=== PATIENT | female | born 1965 | race Hispanic/Latino ===

== ENCOUNTER 2024-06-15 08:55 | Day surgery (SDC) | payer BC ==
[2024-06-14 12:59] LABS: BASOPHILS # (AUTO) 0.04 K/uL (0.00-0.20); BASOPHILS % (AUTO) 0.6 % (0.0-5.0); EOSINOPHILS # (AUTO) 0.16 K/uL (0.00-0.70); EOSINOPHILS % (AUTO) 2.6 % (0.0-8.0); HEMATOCRIT 38.2 % (36-48); IMMATURE GRANULOCYTE ABSOLUTE 0.03 K/uL (0-1); LYMPHOCYTES # (AUTO) 1.9 K/uL (1.0-4.8); LYMPHOCYTES % (AUTO) 29.7 % (21.0-51.0); MEAN CORPUSCULAR HEMOGLOBIN 29.1 pg (27.0-33.0); MEAN CORPUSCULAR HGB CONC 32.2 g/dL (32.0-36.0); MEAN CORPUSCULAR VOLUME 90.5 fL (79-99); MONOCYTES # (AUTO) 0.6 K/uL (0.1-1.0); MONOCYTES % (AUTO) 10.1 % (3.0-13.0); NEUTROPHILS # (AUTO) 3.5 K/uL (1.8-7.7); NEUTROPHILS % (AUTO) 56.5 % (40.0-77.0); PLATELET COUNT (AUTO) 345 K/uL (130-400); RED BLOOD CELL COUNT(AUTO) 4.22 MIL/uL (4.00-5.50); RED CELL DISTRIBUTION WIDTH 13.5 % (11.0-15.5); WHITE BLOOD COUNT (AUTO) 6.2 K/uL (4.8-10.8)
[2024-06-14 13:04] VITALS: BP 128/69; PULSE 67; RESP 18; TEMP 97.9
[2024-06-14 13:46] LABS: CREATININE 0.8 mg/dL (0.5-1.0)
[~2024-06-15] VITALS: Ht 157.5 cm; Wt 71.1 kg
[2024-06-15] VITALS (17 sets, daily range): BP systolic 113–141; BP diastolic 61–76; PULSE 59–108; RESP 15–22; TEMP 97–98.1
[2024-06-15] MEDS: BUPIvacaine HCL/EPINEPHrine/PF 0.25% 10ML VIAL IJ ONE
[~2024-06-15 08:55] MED LIST: ASPI-1443 PO; BUSP15TA3 PO; FLUO40CA49 PO; LOSA25TA41 PO; MEMA5TAB16 PO; ROSU10TA72 PO; TRAZ150T79 PO
[2024-06-15] MEDS: LACTATED RINGERS 1000ML 1,000 ML IV ONE (10:25)
[2024-06-15] MEDS: ceFAZolin SODIUM 2 GM VIAL ONE (10:25)
[2024-06-15] MEDS ORDERED: TRAM-543 PO (12:55)
[2024-06-15] MEDS ORDERED: dexaMETHasone SOD PHOSPHATE 10MG/ML 1ML VIAL ONE (12:57)
[2024-06-15] MEDS ORDERED: proPOFol 10 MG/ML 20ML VIAL IV ONE (12:57)
[2024-06-15] MEDS ORDERED: MIDAZOLAM HCL 1 MG/ML 2ML VIAL ONE (12:58)
[2024-06-15] MEDS ORDERED: rocuRONium bROMide 10MG/1ML 5ML VL ONE ×3 (12:58→14:01)
[2024-06-15] MEDS ORDERED: ondanSETRON 4MG INJ ONE (12:58)
[2024-06-15] MEDS ORDERED: SUCCINYLCHOLINE CHLORIDE 20 MG/ML 10 ML VIAL ONE ×2 (12:58→13:38)
[2024-06-15] MEDS ORDERED: INDOCYANINE GREEN 25 MG VIAL IJ ONE (13:11)
[2024-06-15] MEDS ORDERED: FENTanyl CITRate PF 50 MCG/1 ML 2ML VIAL ONE (13:12)
[2024-06-15] MEDS ORDERED: ePHEDrine SULFate 50 MG/ML AMPULE ONE ×2 (13:28→13:38)
[2024-06-15] MEDS ORDERED: GLYCOPYRROLATE 0.2 MG/ML 5 ML VIAL ONE (15:40)
[2024-06-15] MEDS ORDERED: NEOSTIGMINE METHYLSULFATE 1MG/ML IV ONE (15:40)
--- NOTE | 2024-06-15 15:40 | OP ---
Operative Note: DATE OF PROCEDURE: 06/15/24 SURGEON: BHAVNA BROWN MD CLINICAL CYTOGENETICS DIRECTOR[place] [facility] [place] ANESTHESIA: general PREOPERATIVE DIAGNOSIS: symptomatic cholelithiasis POSTOPERATIVE DIAGNOSIS: symptomatic cholelithiasis SYNOPSIS: distended gallbladder PROCEDURE: robotic assisted cholecystectomy with ICG green ESTIMATED BLOOD LOSS: 150 ml INDICATIONS: This is a 58-year-old female with symptomatic cholelithiasis. She had imaging studies that showed cholelithiasis. A robotic assisted cholecystectomy was indicated. Informed consent was obtained prior to surgery which included a discussion about bleeding, infection, bile duct injury, bile leak and injury to surrounding viscera. DESCRIPTION OF PROCEDURE: Patient was taken to the operating room placed on the operating table in supine position. Next general anesthesia was induced and the patient was intubated. There abdomen was prepped and draped in a sterile fashion. A time-out was called and the patient's identity procedure and preoperative antibiotics were confirmed. I insufflated the abdominal cavity with a Veress needle. Once a pneumoperitoneum was established I entered the abdominal cavity using a 12 mm Optiview port in the left mid abdomen. I noticed some bleeding after entering with a 2nd port. I placed an additional 5 mm port in the left upper quadrant to visualize what was going on. It looked like there was a rent in the mesentery which I assume came from the Veress needle. I obtained quit control by clamping the rent. I then suture ligated the bleeding mesenteric vessel with a 3-0 V lock suture. The bleeding had stopped. I suctioned out the blood. I do not see any obvious bowel injuries. The patient remained stable during this. I placed three additional 8 mm ports across a straight line. The robot was docked to the patient. Pertinent findings: Distended gallbladder The gallbladder was retracted in a cephalad direction. I began to carefully dissect out the hepatic cystic triangle. I used ICG green to confirm ductal anatomy. The critical view was established. I identified the cystic artery. This was clipped and divided. The cystic duct was identified. This was clipped and divided. I then cauterized the gallbladder off the liver fossa bed. I chec ked the liver bed for bleeding. Hemostasis was obtained with electrocautery and packing. The gallbladder was placed in a specimen bag and removed from the abdominal cavity. Once again I checked the area of the mesenteric bleeding. I did not see any active bleeding or hematoma. I closed the fascia of the 12 mm port with a 1-0 Vicryl suture on a Remy-Slava closure device. The pneumoperitoneum was evacuated. Skin incisions were closed with 0.25% Marcaine. Dermabond was applied. Sponge needle instrument counts were accurate. Patient's anesthesia was reversed and they were extubated and taken to recovery room in stable condition. BHAVNA BROWN MD Jun 15, 2024 15:40
[2024-06-15 16:12] LABS: HEMATOCRIT 36.8 % (36-48)
[2024-06-15] MEDS: acetaMINOPHEN 100 ML ONE (16:46)
--- NOTE | 2024-06-15 17:30 | NUR ---
Full and complete discharge instructions given to Patient and Family both verbally and in writing. Explained Surgical procedure precautions and follow up. All questions answered. PIV removed with catheter tip intact. Home with Family W/C to POV.
== END 2024-06-15 17:35 | disposition home or self-care (01) ==
LOC: DAH 08:55
PROVIDERS: ATTEND Surgery
DX: K80.10 Calculus of gallbladder with chronic cholecystitis without obstruction (principal); K21.9 Gastro-esophageal reflux disease without esophagitis; F32.A Depression, unspecified; F41.9 Anxiety disorder, unspecified; I25.119 Atherosclerotic heart disease of native coronary artery with unspecified angina pectoris; E78.5 Hyperlipidemia, unspecified; G43.909 Migraine, unspecified, not intractable, without status migrainosus; E53.8 Deficiency of other specified B group vitamins; E66.9 Obesity, unspecified; I12.9 Hypertensive chronic kidney disease with stage 1 through stage 4 chronic kidney disease, or unspecified chronic kidney disease; N18.2 Chronic kidney disease, stage 2 (mild); Z98.890 Other specified postprocedural states; Z68.28 Body mass index [BMI] 28.0-28.9, adult; Z87.898 Personal history of other specified conditions; Z79.82 Long term (current) use of aspirin; Z79.899 Other long term (current) drug therapy
CPT/HCPCS: 47563; S2900; 36415; 80048; 84703; 85014; 85018; 85025; 88304; A4606; J0330; J1100; J2250; J2405; J2704; J2710; J3010; J3490; J7120; A4215; A4216; A4221; A4222; A4223; A4600; A4663; A4930; A6260; J0690